=== PATIENT | female | born 2000 | race Caucasian/White ===

== ENCOUNTER → 2020-03-03 | Outpatient (CLI) | payer BC, OTHER ==
[2020-03-03 11:45] VITALS: BP 114/78
--- NOTE | 2020-03-03 11:45 | NUR ---
Patient arrived to Room 129 via radiology cot with mother and radiology staff. Orders to assess patient for 1 hour post Lumbar puncture. Patient transfered to bed and laying in supine position. Vitals obtained and within normal limits. Denies complaints at this time. Spoke with Isabel Varner. States that she spoke with the Radiologist, no new orders or prescriptions given to patient except for refraining from activities or heavy lifting for the next 24 hours. Orders to lye flat for 1 hour, take Tylenol if headache occurs and increase caffeine intake throughout day. Information reviewed with mother at this time.
[2020-03-03 12:34] LABS: CSF CLARITY CLEAR; CSF COLOR COLORLESS
[2020-03-03 12:35] LABS: CSF RBC COUNT 0; CSF WBC COUNT 0
[2020-03-03 12:44] LABS: CSF PROTEIN 14.6 mg/dL (15.0-45.0)
[2020-03-03 12:58] VITALS: BP 110/71
--- NOTE | 2020-03-03 12:58 | NUR ---
Patient laid flat for 1 hour, denies complaints at this time. Vitals obtained and within normal limits. Patient ambulated off unit with mother at this time independently.
--- NOTE | 2020-03-03 16:41 | RAD ---
LUMBAR PUNCTURE 03/03/2020 11:00 AM INDICATION: 80 hepatic intracranial hypertension COMPARISON: None available. PROCEDURE: Risks and benefits were discussed with the patient after which informed consent was obtained. Patient was placed prone on the examination table. The L2-L3 interspace was localized under fluoroscopy. Site was marked. Patient was prepped and draped in normal sterile fashion. 1 percent lidocaine was administered for superficial anesthetic effect. A 20-gauge spinal needle was inserted into the thecal sac under fluoroscopic guidance. 20 cc clear spinal fluid was obtained. Needle was removed and compression applied for hemostasis. Patient tolerated the procedure well. No complications were identified at the time procedure. Opening pressure: 32 cm H20 Closing pressure: 9 cm H20 Fluoroscopy time: 0.5 minutes Number of images: 1 IMPRESSION: Successful lumbar puncture under fluoroscopic guidance. Elevated opening pressure measuring 32 cm H2O. Electronically signed by: Maki Talbot MD (03/03/2020 4:38 PM) [id number]
[2020-03-12 05:08] LABS: VIRAL CULT FINAL No virus isolated. (.)
== END | disposition home or self-care (01) ==
LOC: RAD 10:41
PROVIDERS: ATTEND Psychiatry & Neurology Neurology with Special Qualifications in Child Neurology
DX: G93.2 Benign intracranial hypertension (principal)
CPT/HCPCS: 36415; 62270; 82945; 84157; 87071; 87075; 87102; 87252; 89051